=== PATIENT | female | born 1985 | race Two or more races ===

== ENCOUNTER 2017-09-27 15:06 | Emergency (ER) | payer MEDICAID, OTHER ==
[~2017-09-27] VITALS: Ht 162.6 cm; Wt 59.0 kg
[2017-09-27 15:29] VITALS: BP 120/76
[2017-09-27] MEDS ORDERED: IBUPROFEN 400 MG TAB PO ONE (21:15)
== END 2017-09-27 21:19 | disposition home or self-care (01) ==
LOC: ER 15:11
DX: J00 Acute nasopharyngitis [common cold] (principal)
CPT/HCPCS: 87400; 87804

== ENCOUNTER 2022-05-09 20:46 | Emergency (ER) | payer MEDICAID, OTHER ==
[~2022-05-09] VITALS: Ht 170.2 cm; Wt 89.0 kg
[2022-05-10 01:15] VITALS: BP 157/92
[2022-05-10] MEDS ORDERED: KETOROLAC TROMETH 60MG/2ML VIAL IM ONE (01:30)
== END 2022-05-10 01:35 | disposition home or self-care (01) ==
LOC: EDBD 20:46 → ER 20:51
DX: M54.50 Low back pain, unspecified (principal); R51.9 Headache, unspecified; M54.2 Cervicalgia; I10 Essential (primary) hypertension; Z98.51 Tubal ligation status
CPT/HCPCS: 72125; 72131; 96372; 99284; J1885

== ENCOUNTER 2024-02-01 19:35 | Emergency (ER) | payer OTHER ==
[~2024-02-01] VITALS: Ht 160 cm; Wt 81.8 kg
[2024-02-01 19:51] VITALS: BP 163/95; PULSE 102; RESP 18; O2SAT 98
[2024-02-01 20:09] LABS: Urine Bacteria None Seen /hpf (None Seen)
[2024-02-01 20:50] LABS: Urine Blood 3+ /uL (Negative); Urine Clarity Ex.Turbid (Clear); Urine Color Dark-Red (Yellow); Urine Protein, UAD 3+ (Negative); Urine Specific Gravity 1.028 (1.001-1.035); Urine Urobilinogen Normal (Negative); Urine WBC 16 /hpf (0 - 5); Urine pH 6.5 (5.0-9.0)
[2024-02-01 20:51] LABS: Basophils # (auto) 0 10 ^3/uL (0-0.2); Basophils % (auto) 0.1 % (0.0-2.0); Eosinophils # (auto) 0 10 ^3/uL (0-0.8); Eosinophils % (auto) 0.3 % (0.0-7.0); Hematocrit 27.8 % (36.0-46.0); Hemoglobin 9.2 g/dL (12.2-16.2); Lymphocytes # (auto) 2.2 10 ^3/uL (0.4-5.4); Lymphocytes % (auto) 23.6 % (10.0-50.0); Mean Corpuscular Hemoglobin 26.9 pg (28.0-32.0); Mean Corpuscular Hgb Conc. 32.9 g/dL (32.0-36.0); Mean Corpuscular Volume 81.7 fL (80.0-100.0); Monocytes # (auto) 0.4 10 ^3/uL (0-1.3); Monocytes % (auto) 4.4 % (0.0-12.0); Neutrophils # (auto) 6.8 10 ^3/uL (1.6-8.6); Neutrophils % (auto) 71.6 % (37.0-80.0); Nucleated Red Blood Cells % 0.1 %; Red Cell Distribution Width 15.6 % (11.8-14.3); White Blood Cell 9.4 10^3/uL (4.4-10.8)
[2024-02-01 21:07] LABS: Alanine Aminotransferase 13 U/L (7-40); Albumin 4.3 g/dL (3.2-4.8); Alkaline Phosphatase 83 U/L (46-116); Anion Gap 6 (5-15); Aspartate Aminotransferase 11 U/L (13-40); BUN/Creatinine Ratio 13.6 (10.0-20.0); Blood Urea Nitrogen 9 mg/dL (9-23); Calcium 9.6 mg/dL (8.5-10.1); Carbon Dioxide 27 mmol/L (20-30); Chloride 107 mmol/L (98-107); Glucose 111 mg/dL (74-106); Partial Thromboplastin Time 25.2 SEC (24.5-34.5); Potassium 3.6 mmol/L (3.5-5.1); Prothrombin Time 10.6 sec (9.3-11.8); Sodium 140 mmol/L (136-145)
[2024-02-01 21:08] LABS: Bilirubin, Total 0.2 mg/dL (0.2-1.0); Total Protein 7.6 g/dL (5.7-8.2)
== END 2024-02-02 03:48 | disposition home or self-care (01) ==
LOC: ER 19:35
DX: N93.8 Other specified abnormal uterine and vaginal bleeding (principal); R10.2 Pelvic and perineal pain; I10 Essential (primary) hypertension; Z98.51 Tubal ligation status; Z79.01 Long term (current) use of anticoagulants
CPT/HCPCS: 36415; 76856; 80053; 81001; 84702; 85025; 85610; 85730